=== PATIENT | female | born 1975 | race Caucasian/White ===

== ENCOUNTER → 2017-07-19 | Day surgery (SDC) | payer OTHER ==
[~2017-07-19] MED LIST: B COTAB6; BACITRACIN IM FOR SOLN 50,000 UNIT VIAL ONE; BUPIVACAINE HCL PF 0.75% 30 ML VIAL ONE; EPINEPHrine HCL (1:1000) 30 MG/30 ML VIAL ONE; HYDR-3533 PO; LACTATED RINGER'S 1000 ML INJ 1,000 ML ONE; MIDAZOLAM HCL 5 MG/ML VIAL (1 ML) ONE; MULT1TAB46; ONDANSETRON HCL 4 MG/2 ML VIAL ONE; POTA75TA2 PO; PROPOFOL 500 MG/50 ML BTL IV ONE; VITA400C28; Z.0.BCPILL PO; [UNRECOGNIZED DRUG - CODE] PO; ceFAZolin 2 GM PREMIX 50 ML ONE; ceFAZolin INJ 1,000 MG VIAL ONE
--- NOTE | 2017-07-19 09:24 | MP ---
cc: Jamshid Schneider MD DATE OF OPERATION: 07/19/2017 PREOPERATIVE DIAGNOSIS: Left knee anterior cruciate ligament tear. POSTOPERATIVE DIAGNOSIS: Left knee anterior cruciate ligament tear. PROCEDURE: Left knee arthroscopic assisted anterior cruciate ligament allograft reconstruction. SURGEON: Dr. Jamshid Schneider PITCH GATHERER: MANISH Jennings. ANESTHESIA: General with femoral nerve block. ESTIMATED BLOOD LOSS: Less than 50 mL. TOURNIQUET TIME: 0 minutes. COMPLICATIONS: None. IMPLANTS USED: Arthrex. JUSTIFICATION: This patient is a 42-year-old female who injured the left knee. She has had persistence of pain and instability in regards to her condition with failure of conservative. Clinical exam as well as MRI confirmed the above-noted findings. The patient was counseled as to the risks, benefits and alternatives to the above-named proposed surgical procedure. She did wish to proceed with surgery. PROCEDURE IN DETAIL: Written consent was obtained. The patient was identified by name. A femoral nerve block was administered to the left lower extremity by the anesthesiologist. The patient was taken to the operating room and general anesthesia was administered as well as 2 grams of IV Ancef. The left thigh was carefully placed in a well-padded leg bansal. All bony prominences and pressure points were well padded. The left lower extremity was prepped and draped using Isuprel alcohol, Hibiclens solution and DuraPrep solution. After a timeout was performed, standard medial and lateral parapatellar arthroscopic portals were established. The patellofemoral joint revealed no significant chondromalacia. The medial compartment was free of meniscal pathology and chondromalacia. The intercondylar notch revealed a complete disruption of the anterior cruciate ligament. The posterior cruciate ligament was visualized and intact. Lateral compartment revealed no significant chondromalacia. There was an undersurface tear of the far posterior horn of the lateral meniscus, but it was not a full thickness tear. It did not communicate with the superior articular surface and was not unstable upon probing. At this point, attention was turned to the intercondylar notch were a debridement of the torn anterior cruciate ligament stump was performed. An arthroscopic bur was used to perform a notchplasty. The posterior wall was well visualized. An Arthrex 6 mm over the top medial portal femoral guide was placed in the medial portal. The knee was hyperflexed and a guide pin was drilled exiting the superolateral aspect of the knee. A low profile cannulated 9.5 mm reamer was then drilled to a depth of 25 mm. The shaver was used to clean soft tissue and bony debris from within the knee joint. The Beath needle was then used to shuttle a FiberLink suture from the medial portal, exiting the superolateral aspect of the knee. An Arthrex retro-cutting tibial guide was centered within the [place] footprint of the ACL and a guide pin was drilled into the [place] footprint insertion of the anterior cruciate ligament. Subsequently, a guide pin was then used to capture at the 9.5 mm retro-cutting tibial guide and the tibial tunnel was retro-cut 9.5 mm in diameter. The shaver was again used to clean soft tissue and bone debris from within the knee joint. The passing suture was then pulled from the medial port, exiting the tibial tunnel on the back table. The posterior tibialis tendon allograft was thawed in antibiotic solution. Ezio Khoury, physician logging assistant certified, was instrumental in fashioning the graft to a folded diameter of 9.5 mm. #2 FiberWire whipstitch was placed in the proximal and distal portion of the graft and the graft was pre-tensioned on the back table. Once repaired, an Arthrex TightRope anchor was placed in the midportion of the graft. The sutures from the anchor were then placed through the eyelet of the shuttling suture and then pulled from the tibial tunnel exiting the femoral tunnel. The TightRope button was then pulled from the tibial tunnel into the femoral tunnel, exiting the lateral cortex of the femur. Once secured on the lateral cortex, the graft was then pulled from the tibial tunnel and fully seated into the femoral tunnel. The knee was taken through a full range of motion with no evidence of pistoning or impingement. With the leg held in near-full extension, a guidewire was placed along the anterior border of the graft. An Arthrex 9 x 28 mm bioabsorbable interference screw was used for soft tissue fixation on the tibia. After appropriate tensioning of the graft and insertion of the screw, an intraoperative Eun exam was performed which was negative. The knee showed excellent stability. The graft exiting the tibial tunnel was removed with a 15 blade scalpel. The subcutaneous layer was closed with 3-0 Vicryl suture. Skin incisions closed with 3-0 Prolene suture. Sterile dressing applied. The patient tolerated the procedure with no intraoperative complications noted. Ezio Khoury, physician logging assistant certified, was present for the entire procedure particularly to articulate the patient position and the procedure itself. The medical necessity a physician logging assistant was indicated in this case due to the complexity of the procedure. He assisted with appropriate manipulation of the leg and also manipulation of the camera. He assisted in preparation of the graft, drilling of tunnels, implantation of the graft and implantation of the internal fixation devices for purpose of reconstruction. Jamshid Schneider MD JWInder/ADE , 08:41 AM , 09:23 AM
== END | disposition home or self-care (01) ==
LOC: ESDC 06:01
PROVIDERS: ATTEND Orthopaedic Surgery Sports Medicine
DX: S83.512A Sprain of anterior cruciate ligament of left knee, initial encounter (principal)
CPT/HCPCS: 01400; 01991; 29888; 64447; C1713; J0171; J0690; J2250; J2405; J3010; J7120